=== PATIENT | male | born 1995 | race Caucasian/White ===

== ENCOUNTER 2018-06-07 10:39 | Emergency (ER) | payer SELFPAY ==
--- NOTE | 2018-06-07 11:27 | EKG ---
Test Date: 2018-06-07 Test Time: 11:07:25 Glass Mould Cleaner: JOE MEASUREMENT RESULTS: Intervals: Rate: 64 SC: 134 QRSD: 102 QT: 402 QTc: 414 Velva: P: 42 SC: 134 QRS: 46 T: 53 INTERPRETIVE STATEMENTS: Normal sinus rhythm Normal ECG No previous ECG available for comparison Electronically Signed On 06-07-18 11:27:33 CDT by Andrew Contreras
[2018-06-07 12:16] LABS: Absolute Lymphocytes (CBC) 2.9 K/uL (0.7-4.9); Absolute Monocytes 0.6 K/uL (0.1-1.3); Absolute Neutrophil 4.9 K/uL (1.8-8.0); Basophils % 0.8 % (0-1.3); Eosinophils % 6.3 % (0-4.4); Hematocrit 47.1 % (39.6-49.0); Lymphocytes % 31.9 % (15.3-44.8); MCH 30.4 pg (27.0-35.0); MCV 87.3 fL (80-100); MPV 8.4 fL (7.6-11.3); Monocytes % 6.4 % (3.3-12.3)
[2018-06-07 12:27] LABS: Protime INR 1.02
--- NOTE | 2018-06-07 12:37 | RAD REPORT ---
EXAM DESCRIPTION: RAD - Chest Single View - 06/07/2018 12:30 pm CLINICAL HISTORY: SOB Chest pain. COMPARISON: No comparisons FINDINGS: Portable technique limits examination quality. The lungs are grossly clear. The heart is normal in size. No displaced fractures. IMPRESSION: No acute intrathoracic process suspected.
[2018-06-07 12:38] LABS: Urine Blood NEGATIVE (NEG); Urine Glucose NEGATIVE (NEG); Urine Protein NEGATIVE (NEG); Urine Specific Gravity 1.015 (1.005-1.030)
[2018-06-07 12:43] LABS: ALT/SGPT 34 U/L (12-78); AST/SGOT 19 U/L (15-37); Albumin 4.2 g/dL (3.4-5.0); Alkaline Phosphatase 40 U/L (45-117); BUN Blood Urea Nitrogen 11 mg/dL (7-18); Bicarbonate 24 mmol/L (21-32); Bilirubin Direct 0.2 mg/dL (0-0.2); CKMB Creatine Kinase MB < 1.0 ng/mL (0.3-3.6); Creatine Phosphokinase 141 U/L (39-308); Glucose Level 98 mg/dL (74-106); NT PRO-BNP 20 pg/mL (<125); Potassium 3.7 mmol/L (3.5-5.1); Protein, Total 7.9 g/dL (6.4-8.2); Sodium Level 136 mmol/L (136-145)
--- NOTE | 2018-06-07 15:19 | ER ---
Nurse's Notes [facility] Name: Ar Henley Age: 22 yrs Sex: Male : 1995 Arrival Date: 06/07/2018 Time: 10:39 Bed 17 Private MD: Diagnosis: Weakness;Shortness of breath Presentation: 06/07 10:40 Presenting complaint: EMS states: pt was climbing a scaffold at work when he began to dm5 feel weak, have numbness of his lips, and suffer from chest pain/LUQ pain. pt states he has never had this happen before. Transition of care: patient was not received from another setting of care. Onset of symptoms was June 07, 2018. Risk Assessment: Do you want to hurt yourself or someone else? Patient reports no desire to harm self or others. Initial Sepsis Screen: Does the patient meet any 2 criteria? No. Patient's initial sepsis screen is negative. Does the patient have a suspected source of infection? No. Patient's initial sepsis screen is negative. Care prior to arrival: None. 10:40 Method Of Arrival: EMS: [place] [id number] 10:40 Acuity: RAFAEL 3 dm5 Triage Assessment: 10:42 General: Appears in no apparent distress. uncomfortable, Behavior is cooperative, dm5 anxious. Pain: Complains of pain in chest. Respiratory: Reports shortness of breath on exertion Onset: The symptoms/episode began/occurred suddenly, the patient has moderate shortness of breath. Historical: - Allergies: 10:42 Sulfa (Sulfonamide Antibiotics); dm5 - Home Meds: 10:42 None [Active]; dm5 - PMHx: 10:42 None; dm5 - PSHx: 10:42 None; dm5 - Immunization history:: Adult Immunizations up to date. - Social history:: Smoking status: Patient/guardian denies using tobacco. - Ebola Screening: : Patient negative for fever greater than or equal to 101.5 degrees Fahrenheit, and additional compatible Ebola Virus Disease symptoms Patient denies exposure to infectious person Patient denies travel to an Ebola-affected area in the 21 days before illness onset No symptoms or risks identified at this time. Screenin:21 Abuse screen: Denies threats or abuse. Denies injuries from another. Nutritional hb screening: No deficits noted. Tuberculosis screening: No symptoms or risk factors identified. Fall Risk None identified. Assessment: 10:45 General: Appears in no apparent distress. Behavior is calm, cooperative. Pain: Pain hb currently is 2 out of 10 on a pain scale. Neuro: Level of Consciousness is awake, alert, obeys commands, Oriented to person, place, time, situation. Cardiovascular: Reports chest pain, shortness of breath, Heart tones S1 S2 present Capillary refill < 3 seconds Patient's skin is warm and dry. Rhythm is regular. Respiratory: Reports shortness of breath Airway is patent Trachea midline Respiratory effort is even, unlabored, Respiratory pattern is regular, symmetrical, Breath sounds are clear bilaterally. GI: No signs and/or symptoms were reported involving the gastrointestinal system. : No signs and/or symptoms were reported regarding the genitourinary system. EENT: No signs and/or symptoms were reported regarding the EENT system. Derm: No signs and/or symptoms reported regarding the dermatologic system. Skin is intact, is healthy with good turgor. Musculoskeletal: No signs and/or symptoms reported regarding the musculoskeletal system. 11:30 Reassessment: Patient appears in no apparent distress at this time. Patient and/or hb family updated on plan of care and expected duration. Pain level reassessed. Patient is alert, oriented x 3, equal unlabored respirations, skin warm/dry/pink. 12:30 Reassessment: Patient appears in no apparent distress at this time. No changes from hb previously documented assessment. Patient and/or family updated on plan of care and expected duration. Pain level reassessed. Patient is alert, oriented x 3, equal unlabored respirations, skin warm/dry/pink. 13:30 Reassessment: Patient appears in no apparent distress at this time. No changes from hb previously documented assessment. Patient and/or family updated on plan of care and expected duration. Pain level reassessed. Patient is alert, oriented x 3, equal unlabored respirations, skin warm/dry/pink. 14:30 Reassessment: Patient appears in no apparent distress at this time. No changes from hb previously documented assessment. Patient and/or family updated on plan of care and expected duration. Pain level reassessed. Patient is alert, oriented x 3, equal unlabored respirations, skin warm/dry/pink. Vital Signs: 10:42 BP 126 / 81; Pulse 70; Resp 20; Temp 98.3; Pulse Ox 99% on R/A; Weight 95.25 kg; Height dm5 5 ft. 10 in. (177.80 cm); Pain 2/10; 10:42 Body Mass Index 30.13 (95.25 kg, 177.80 cm) dm5 ED Course: 10:39 Patient arrived in ED. dm5 10:41 Triage completed. dm5 10:42 Arm band placed on right wrist. dm5 10:43 Inserted saline lock: 18 gauge in right antecubital area, using aseptic technique. dh3 Blood collected. by ABDIFATAH Neely. 10:45 No provider procedures requiring assistance completed. sg 11:00 Patient has correct armband on for positive identification. Bed in low position. Call sg light in reach. Side rails up X2. compliance monitor on. Pulse ox on. NIBP on. Warm blanket given. Head of bed elevated. 11:10 Gerhard Segundo MD is Attending Physician. kdr 11:16 EKG done, by lead quality technician. reviewed by Gerhard Segundo MD. at1 11:40 Jermain Foote, ABDIFATAH is Primary Nurse. sg 12:00 Urine collected: clean catch specimen, jovani colored. dh3 12:09 Initial lab(s) drawn, by ED staff, sent to lab. dh3 12:29 X-ray completed. Portable x-ray completed in exam room. Patient tolerated procedure jb2 well. 12:31 XRAY Chest (1 view) In Process Unspecified. EDMS 12:36 Awaiting for x-ray. sg 14:35 Repeat lab(s) drawn. by ED staff, sent to lab. sg 15:45 IV discontinued, intact, bleeding controlled, No redness/swelling at site. Pressure sg dressing applied. Administered Medications: No medications were administered Point of Care Testing: Blood Glucose: 10:42 Blood Glucose: 98 mg/dL; dm5 Ranges: Outcome: 15:18 Discharge ordered by . kdr 15:30 Discharged to home ambulatory, with family. sg 15:30 Condition: good 15:30 Discharge instructions given to patient, Instructed on discharge instructions, follow up and referral plans. medication usage, safety practices, Demonstrated understanding of instructions, follow-up care. 15:34 Patient left the ED. sg Signatures: Dispatcher [employer] EDN[facility] Ethel Dunn, ABDIFATAH RN dm5 Foote, Jermain, Gerhard Colon RN, MD MD kdr Buechter, Jesse jb2 Nicci Sanchez, zig zag spring machine operator EKG Tat1 Florinda Sparks RN RN hb Herrera, Deanna 3 Corrections: (The following items were deleted from the chart) 12:15 10:43 Inserted saline lock: 18 gauge in right antecubital area, using aseptic dh3 technique. Blood collected. [facility]
--- NOTE | 2018-06-07 15:19 | EDPHYS ---
Physician Documentation [facility] Name: Ar Henley Age: 22 yrs Sex: Male : 1995 Arrival Date: 06/07/2018 Time: 10:39 Bed 17 Private MD: ED Physician Gerhard Segundo HPI: 06/07 18:42 This 22 yrs old Male presents to ER via EMS with complaints of Shortness Of kdr Breath - numbness of lips, LUQ/lower left chest pain. 18:42 The patient has shortness of breath with light activity, The patient had just climbed a kdr scaffolding about 10' when he had acute onset of SOB. Then his hands and moth began to get tingling and numb. He had not had this before and there are no other associated s/s. Onset: The symptoms/episode began/occurred suddenly, just prior to arrival. Duration: The symptoms are continuous, but are markedly better than the original presentation. The patient's shortness of breath has no apparent modifying factors. Associated signs and symptoms: The patient has no apparent associated signs or symptoms. Associated signs and symptoms: Pertinent positives: This patient does not have any pertinent positive signs or symptoms associated with shortness of breath. Severity of symptoms: At their worst the symptoms were mild moderate in the emergency department the symptoms are unchanged. The patient has not experienced similar symptoms in the past. The patient has not recently seen a physician. Historical: - Allergies: 10:42 Sulfa (Sulfonamide Antibiotics); dm5 - Home Meds: 10:42 None [Active]; dm5 - PMHx: 10:42 None; dm5 - PSHx: 10:42 None; dm5 - Immunization history:: Adult Immunizations up to date. - Social history:: Smoking status: Patient/guardian denies using tobacco. - Ebola Screening: : Patient negative for fever greater than or equal to 101.5 degrees Fahrenheit, and additional compatible Ebola Virus Disease symptoms Patient denies exposure to infectious person Patient denies travel to an Ebola-affected area in the 21 days before illness onset No symptoms or risks identified at this time. ROS: 18:42 Constitutional: Negative for fever, chills, and weight loss, Eyes: Negative for injury, kdr pain, redness, and discharge, Neck: Negative for injury, pain, and swelling, Cardiovascular: Negative for chest pain, palpitations, and edema, Respiratory: Negative for shortness of breath, cough, wheezing, and pleuritic chest pain, Abdomen/GI: Negative for abdominal pain, nausea, vomiting, diarrhea, and constipation, Back: Negative for injury and pain, MS/Extremity: Negative for injury and deformity, Skin: Negative for injury, rash, and discoloration, Neuro: Negative for headache, weakness, numbness, tingling, and seizure activity. Psych: Negative for depression, anxiety, suicide ideation, homicidal ideation, and hallucinations, Allergy/Immunology: Negative for hives, rash, and allergies, Endocrine: Negative for neck swelling, polydipsia, polyuria, polyphagia, and marked weight changes, Hematologic/Lymphatic: Negative for swollen nodes, abnormal bleeding, and unusual bruising. Exam: 18:46 Constitutional: This is a well developed, well nourished patient who is awake, alert, kdr and in no acute distress. Head/Face: Normocephalic, atraumatic. Eyes: Pupils equal round and reactive to light, extra-ocular motions intact. Lids and lashes normal. Conjunctiva and sclera are non-icteric and not injected. Cornea within normal limits. Periorbital areas with no swelling, redness, or edema. Neck: Trachea midline, no thyromegaly or masses palpated, and no cervical lymphadenopathy. Supple, full range of motion without nuchal rigidity, or vertebral point tenderness. No Meningismus. Chest/axilla: Normal chest wall appearance and motion. Nontender with no deformity. No lesions are appreciated. Cardiovascular: Regular rate and rhythm with a normal S1 and S2. No gallops, murmurs, or rubs. Normal PMI, no JVD. No pulse deficits. Respiratory: Lungs have equal breath sounds bilaterally, clear to auscultation and percussion. No rales, rhonchi or wheezes noted. No increased work of breathing, no retractions or nasal flaring. Abdomen/GI: Soft, non-tender, with normal bowel sounds. No distension or tympany. No guarding or rebound. No evidence of tenderness throughout. Back: No spinal tenderness. No costovertebral tenderness. Full range of motion. Skin: Warm, dry with normal turgor. Normal color with no rashes, no lesions, and no evidence of cellulitis. MS/ Extremity: Pulses equal, no cyanosis. Neurovascular intact. Full, normal range of motion. Neuro: Awake and alert, GCS 15, oriented to person, place, time, and situation. Cranial nerves II-XII grossly intact. Motor strength 5/5 in all extremities. Sensory grossly intact. Cerebellar exam normal. Normal gait. Psych: Awake, alert, with orientation to person, place and time. Behavior, mood, and affect are within normal limits. Vital Signs: 10:42 BP 126 / 81; Pulse 70; Resp 20; Temp 98.3; Pulse Ox 99% on R/A; Weight 95.25 kg; Height dm5 5 ft. 10 in. (177.80 cm); Pain 2/10; 10:42 Body Mass Index 30.13 (95.25 kg, 177.80 cm) dm5 MDM: 15:18 Patient medically screened. kdr 18:46 Data reviewed: vital signs, nurses notes, lab test result(s), radiologic studies. kdr Counseling: I had a detailed discussion with the patient and/or guardian regarding: the historical points, exam findings, and any diagnostic results supporting the discharge/admit diagnosis, lab results, radiology results, the need for outpatient follow up. 06/07 10:45 Order name: Glucose, Ancillary Testing; Complete Time: 14:48 EDMS 06/07 12:04 Order name: Basic Metabolic Panel; Complete Time: 14:48 hb 06/07 12:04 Order name: CBC with Diff; Complete Time: 14:48 hb 06/07 12:04 Order name: Ckmb; Complete Time: 14:48 hb 06/07 12:04 Order name: CPK; Complete Time: 14:48 hb 06/07 12:04 Order name: LFT's; Complete Time: 14:48 hb 06/07 12:04 Order name: Magnesium; Complete Time: 14:48 hb 06/07 12:04 Order name: NT PRO-BNP; Complete Time: 14:48 hb 06/07 12:04 Order name: PT-INR; Complete Time: 14:48 hb 06/07 12:04 Order name: Ptt, Activated; Complete Time: 14:48 hb 06/07 12:04 Order name: Troponin (emerg Dept Use Only); Complete Time: 14:48 hb 06/07 11:03 Order name: EKG; Complete Time: 11:04 dm5 06/07 11:03 Order name: EKG - Nurse/Tech; Complete Time: 11:40 dm5 06/07 12:04 Order name: Cardiac monitoring; Complete Time: 12:24 hb 06/07 12:04 Order name: IV Saline Lock; Complete Time: 12:24 hb 06/07 12:04 Order name: Labs collected and sent; Complete Time: 12:24 hb 06/07 12:05 Order name: XRAY Chest (1 view); Complete Time: 14:48 cc3 06/07 12:20 Order name: Urine Dipstick--Ancillary (enter results); Complete Time: 14:48 dm5 06/07 14:29 Order name: Troponin (emerg Dept Use Only); Complete Time: 15:17 bd 06/07 12:04 Order name: O2 Per Protocol; Complete Time: 12:24 hb 06/07 12:04 Order name: O2 Sat Monitoring; Complete Time: 12:24 hb 06/07 12:04 Order name: Urine Dipstick-Ancillary (obtain specimen); Complete Time: 12:05 hb 06/07 12:05 Order name: Cardiac monitoring; Complete Time: 12:17 cc3 06/07 12:05 Order name: IV Saline Lock; Complete Time: 12:17 cc3 06/07 12:05 Order name: Labs collected and sent; Complete Time: 12:17 cc3 06/07 12:05 Order name: O2 Per Protocol; Complete Time: 12:17 cc3 06/07 12:05 Order name: O2 Sat Monitoring; Complete Time: 12:17 cc3 06/07 12:05 Order name: Urine Dipstick-Ancillary (obtain specimen); Complete Time: 12:17 cc3 Administered Medications: No medications were administered Point of Care Testing: Blood Glucose: 10:42 Blood Glucose: 98 mg/dL; dm5 Ranges: Critical Glucose Levels:Adult <50 mg/dl or >400 mg/dl <40 mg/dl or >180 mg/dl Disposition: 06/07/18 15:18 Discharged to Home. Impression: Weakness, Shortness of breath. - Condition is Stable. - Discharge Instructions: Shortness of Breath, Pediatric, Shortness of Breath, [id number], Fatigue, Weakness, [id number]. - Work release form, Medication Reconciliation Form, Thank You Letter form. - Follow up: Private Physician; When: 2 - 3 days; Reason: If symptoms return, Further diagnostic work-up, Recheck today's complaints, Continuance of care, Re-evaluation by your physician. - Problem is new. - Symptoms are resolved. Signatures: Dispatcher [employer] [facility] AngieEthel joiner RN RN dm5 Jermain Foote RN RN sg Gerhard Segundo MD MD [facility] Florinda Sparks RN RN Rossi Berrios 3 Corrections: (The following items were deleted from the chart) 12:09 12:05 Chest Single View+RAD.RAD.BRZ ordered. [facility] EDNJ 12:16 12:05 BASIC METABOLIC PANEL+C.LAB.BRZ ordered. [facility] 12:16 12:05 CKMB+C.LAB.BRZ ordered. [facility] 12:16 12:05 CREATINE PHOSPHOKINASE+C.LAB.BRZ ordered. [facility] 12:16 12:05 HEPATIC FUNCTION+C.LAB.BRZ ordered. [facility] 12:16 12:06 MAGNESIUM+C.LAB.BRZ ordered. [facility] 12:16 12:06 PROBNP+C.LAB.BRZ ordered. [facility] 12:17 12:06 TROPONIN (EMERG DEPT USE ONLY)+C.LAB.BRZ ordered. [facility] 12:19 12:05 CBC+H.LAB.BRZ ordered. [facility] EDNJ 12:19 12:06 PROTIME (+INR)+COAG.LAB.BRZ ordered. [facility] EDNJ 12:19 12:06 PTT, ACTIVATED+COAG.LAB.BRZ ordered. [facility] 15:34 15:18 06/07/2018 15:18 Discharged to Home. Impression: Weakness; Shortness of breath. sg Condition is Stable. Forms are Medication Reconciliation Form, Thank You Letter, Antibiotic Education, Prescription Opioid Use. Follow up: Private Physician; When: 2 - 3 days; Reason: If symptoms return, Further diagnostic work-up, Recheck today's complaints, Continuance of care, Re-evaluation by your physician. Problem is new. Symptoms are resolved. kdr
== END 2018-06-07 15:34 | disposition home or self-care (01) ==
LOC: ER 10:39
DX: R53.1 Weakness (principal); Z88.2 Allergy status to sulfonamides
CPT/HCPCS: 36415; 71045; 80048; 80076; 81003; 82550; 82553; 82962; 83735; 83880; 84484; 85025; 85610; 85730; 93005; 99285

== ENCOUNTER 2021-08-20 14:09 | Emergency (ER) | payer BC, SELFPAY ==
[2021-08-20] MEDS ORDERED: MORPHINE 4 MG/ML SYR ONE (16:18)
[2021-08-20] MEDS ORDERED: ONDANSETRON 4 MG/2 ML VIAL ONE (16:19)
[2021-08-20] MEDS ORDERED: KETOROLAC 30 MG/ML INJ ONE (16:19)
[2021-08-20] MEDS ORDERED: NA CHLORIDE 0.9% 1,000 ML ONE (16:19)
[2021-08-20 16:33] LABS: Basophils % 1.3 % (0-1.3); Hematocrit 43.1 % (39.6-49.0); Lymphocytes % 28.9 % (15.3-44.8); MPV 7.6 fL (7.6-11.3); RBC Red Blood Cell Count 4.99 M/uL (4.33-5.43)
--- NOTE | 2021-08-20 16:52 | RAD REPORT ---
EXAM DESCRIPTION: RAD - Femur Left - 08/20/2021 4:38 pm CLINICAL HISTORY: PAIN COMPARISON: No comparisons FINDINGS: No fracture or dislocation is seen.
[2021-08-20 16:53] LABS: Albumin 3.9 g/dL (3.4-5.0); Bilirubin Total 0.6 mg/dL (0.2-1.0); Potassium 4.4 mmol/L (3.5-5.1); Protein, Total 7.7 g/dL (6.4-8.2)
--- NOTE | 2021-08-20 19:30 | RAD REPORT ---
EXAM DESCRIPTION: MRI - Femur Left Wo Cont - 08/20/2021 7:08 pm CLINICAL HISTORY: torn muscle Left thigh pain and swelling COMPARISON: No comparisons FINDINGS: Significant elevated T2 and IR signal is seen within the left rectus femoris muscle compat ible with a significant muscle strain. The affected length of the involved portion of the muscle is 2 1 cm in craniocaudad dimension and 3 cm in anterior-posterior dimension. Full-thickness muscle tear i s not seen. No soft tissue mass. No femoral abnormality. IMPRESSION: Significant rectus femoris strain.
--- NOTE | 2021-08-20 19:47 | EDPHYS ---
Physician Documentation [facility] Name: Ar Henley Age: 26 yrs Sex: Male : 1995 Arrival Date: 08/20/2021 Time: 14:[address] Private MD: Jerson Whitlock HPI: 08/20 18:30 This 26 yrs old Male presents to ER via Ambulatory with complaints of Thigh stew Pain. 18:30 The patient presents with decreased range of motion, pain, that is acute. The stew complaints affect the medial aspect of left thigh and left quadriceps. Context: The problem was sustained on a street or driveway. Onset: The symptoms/episode began/occurred just prior to arrival. Modifying factors: The symptoms are alleviated by remaining still, the symptoms are aggravated by movement, weight bearing, bending knee. Associated signs and symptoms: The patient has no apparent associated signs or symptoms. Treatment prior to arrival includes: no previous treatment. Severity of symptoms: At their worst the symptoms were moderate, in the emergency department the symptoms are unchanged. The patient has not experienced similar symptoms in the past. Historical: - Allergies: 15:28 Sulfa (Sulfonamide Antibiotics); ap3 - Home Meds: 15:28 None [Active]; ap3 - PMHx: 15:28 None; ap3 - PSHx: 15:28 None; ap3 - Immunization history:: Adult Immunizations up to date, Client reports having NOT received the Covid vaccine. - Social history:: Smoking status: Patient reports the use of cigarette tobacco products, denies chronic smoking, but will smoke occasionally, Patient uses alcohol, only on a social basis. - Family history:: not pertinent. ROS: 18:30 Constitutional: Negative for fever, chills, and weight loss, Eyes: Negative for injury, stew pain, redness, and discharge, ENT: Negative for injury, pain, and discharge, Neck: Negative for injury, pain, and swelling, Cardiovascular: Negative for chest pain, palpitations, and edema, Respiratory: Negative for shortness of breath, cough, wheezing, and pleuritic chest pain, Abdomen/GI: Negative for abdominal pain, nausea, vomiting, diarrhea, and constipation, Back: Negative for injury and pain, : Negative for injury, bleeding, discharge, and swelling, Skin: Negative for injury, rash, and discoloration, Neuro: Negative for headache, weakness, numbness, tingling, and seizure, Psych: Negative for depression, anxiety, suicide ideation, homicidal ideation, and hallucinations, Allergy/Immunology: Negative for hives, rash, and allergies, Endocrine: Negative for neck swelling, polydipsia, polyuria, polyphagia, and marked weight changes, Hematologic/Lymphatic: Negative for swollen nodes, abnormal bleeding, and unusual bruising. 18:30 MS/extremity: Positive for decreased range of motion, pain, tenderness, of the left inner thigh, medial aspect of left thigh and left quadriceps. Exam: 18:30 Constitutional: This is a well developed, well nourished patient who is awake, alert, stew and in no acute distress. Head/Face: Normocephalic, atraumatic. Eyes: Pupils equal round and reactive to light, extra-ocular motions intact. Lids and lashes normal. Conjunctiva and sclera are non-icteric and not injected. Cornea within normal limits. Periorbital areas with no swelling, redness, or edema. ENT: Nares patent. No nasal discharge, no septal abnormalities noted. Tympanic membranes are normal and external auditory canals are clear. Oropharynx with no redness, swelling, or masses, exudates, or evidence of obstruction, uvula midline. Mucous membranes moist. Neck: Trachea midline, no thyromegaly or masses palpated, and no cervical lymphadenopathy. Supple, full range of motion without nuchal rigidity, or vertebral point tenderness. No Meningismus. Chest/axilla: Normal chest wall appearance and motion. Nontender with no deformity. No lesions are appreciated. Cardiovascular: Regular rate and rhythm with a normal S1 and S2. No gallops, murmurs, or rubs. Normal PMI, no JVD. No pulse deficits. Respiratory: Lungs have equal breath sounds bilaterally, clear to auscultation and percussion. No rales, rhonchi or wheezes noted. No increased work of breathing, no retractions or nasal flaring. Abdomen/GI: Soft, non-tender, with normal bowel sounds. No distension or tympany. No guarding or rebound. No evidence of tenderness throughout. Back: No spinal tenderness. No costovertebral tenderness. Full range of motion. Male : Normal genitalia with no discharge or lesions. Skin: Warm, dry with normal turgor. Normal color with no rashes, no lesions, and no evidence of cellulitis. Neuro: Awake and alert, GCS 15, oriented to person, place, time, and situation. Cranial nerves II-XII grossly intact. Motor strength 5/5 in all extremities. Sensory grossly intact. Cerebellar exam normal. Normal gait. Psych: Awake, alert, with orientation to person, place and time. Behavior, mood, and affect are within normal limits. 18:30 Musculoskeletal/extremity: Extremities: noted in the left quadriceps: deformity, pain, ROM: limited active range of motion, limited passive range of motion, in the left inner thigh, medial aspect of left thigh and left quadriceps, limited active range of motion due to pain, limited passive range of motion due to pain, Circulation is intact in all extremities. Sensation intact. Compartment Syndrome exam of affected extremity: is normal. Joints: All joints appear normal with full range of motion. DVT Exam: no swelling, negative Homans' sign noted on exam, no appreciated bluish discoloration, no erythema, no increased warmth, pain, tenderness. Vital Signs: 15:30 BP 126 / 67; Pulse 78; Resp 17; Temp 97.8(TE); Pulse Ox 100% ; Weight 102.06 kg; Height ap3 5 ft. 10 in. (177.80 cm); Pain 8/10; 16:26 BP 127 / 75; Pulse 72; Pulse Ox 100% on R/A; ap3 20:00 BP 130 / 89; Pulse 71; Resp 16; Pulse Ox 98% on R/A; Pain 4/10; fu 15:30 Body Mass Index 32.28 (102.06 kg, 177.80 cm) ap3 MDM: 15:24 Patient medically screened. stew 18:33 Differential diagnosis: closed fracture, contusion, tendonitis. Data reviewed: vital stew signs, nurses notes, lab test result(s), radiologic studies, MRI, plain films, ultrasound. Data interpreted: court monitor: rate is 72 beats/min, rhythm is regular, Pulse oximetry: on room air is 100 %. Test interpretation: by ED physician or midlevel provider: plain radiologic studies. Counseling: I had a detailed discussion with the patient and/or guardian regarding: the historical points, exam findings, and any diagnostic results supporting the discharge/admit diagnosis, lab results, radiology results, the need for outpatient follow up, for definitive care, a family practitioner, a orthopedic surgeon. 08/20 16:13 Order name: CBC with Diff; Complete Time: 18:27 [facility] 08/20 16:13 Order name: Comprehensive Metabolic Panel; Complete Time: 18:27 [facility] 08/20 16:13 Order name: Femur Left XRAY; Complete Time: 18:27 [facility] 08/20 18:29 Order name: US Extremity Venous Unilateral Ltd [facility] 08/20 19:07 Order name: Femur Left Wo Cont; Complete Time: 19:45 EDMS Administered Medications: 16:26 Drug: NS 0.9% 1000 ml Route: IV; Rate: 1 bolus; Site: right antecubital; ap3 17:52 Follow up: IV Status: Completed infusion ap3 16:26 Drug: Ketorolac 30 mg Route: IVP; Site: right antecubital; ap3 17:52 Follow up: Response: No adverse reaction; Pain is decreased ap3 16:26 Drug: Zofran (Ondansetron) 4 mg Route: IVP; Site: right antecubital; ap3 17:52 Follow up: Response: No adverse reaction; Nausea is decreased ap3 16:26 Drug: morphine 4 mg Route: IVP; Site: right antecubital; ap3 17:52 Follow up: Response: No adverse reaction; Pain is decreased ap3 Disposition Summary: 08/20/21 19:46 Discharge Ordered Location: Home stew Problem: new stew Symptoms: have improved stew Condition: Stable stew Diagnosis - Unspecified injury of unspecified quadriceps muscle, fascia and tendon, initial stew encounter - rectus femoris strain, significant Followup: stew - With: Private Physician - When: 2 - 3 days - Reason: Recheck today's complaints, Continuance of care, Re-evaluation by your physician Followup: stew - With: - When: 2 - 3 days - Reason: Recheck today's complaints, Continuance of care, Re-evaluation by your physician Discharge Instructions: - Discharge Summary Sheet stew - Musculoskeletal Pain stew - Muscle Pain, Adult stew Forms: - Medication Reconciliation Form stew - Thank You Letter stew - Antibiotic Education stew - Prescription Opioid Use stew - Work release form fu Prescriptions: - Naprosyn 500 mg Oral Tablet - take 1 tablet by ORAL route 2 times per day take with food; 30 tablet; Refills: stew 0, Product Selection Permitted - Tylenol-Codeine #3 300 mg-30 mg Oral - take 2 tablet by ORAL route every 4-6 hours; 24 tablet; Refills: 0, Product stew Selection Permitted Signatures: Dispatcher [employer] Jerson Zamarripa MD MD cha Prokisch, Amanda RN RN ap3 Corrections: (The following items were deleted from the chart) 19:07 16:15 Lower Extremity Wo ordered. ED EDMS
--- NOTE | 2021-08-20 19:47 | ER ---
Nurse's Notes [facility] Name: Ar Henley Age: 26 yrs Sex: Male : 1995 Arrival Date: 08/20/2021 Time: 14:[address] Private MD: Diagnosis: Unspecified injury of unspecified quadriceps muscle, fascia and tendon, initial encounter-rectus femoris strain, significant Presentation: 08/20 15:27 Chief complaint: Patient states: he was working on his 's car, when he got up and ap3 felt pain in his left upper leg. patient states the pain doesn't radiate. Coronavirus screen: At this time, the client does not indicate any symptoms associated with coronavirus-19. Ebola Screen: No symptoms or risks identified at this time. Initial Sepsis Screen: Does the patient meet any 2 criteria? No. Patient's initial sepsis screen is negative. Does the patient have a suspected source of infection? No. Patient's initial sepsis screen is negative. Risk Assessment: Do you want to hurt yourself or someone else? Patient reports no desire to harm self or others. Onset of symptoms was August 20, 2021. 15:27 Method Of Arrival: Ambulatory ap3 15:27 Acuity: RAFAEL 4 ap3 Triage Assessment: 15:29 General: Appears in no apparent distress. comfortable, Behavior is calm, cooperative, ap3 appropriate for age. Pain: Complains of pain in left leg. 15:29 Neuro: Level of Consciousness is awake, alert, obeys commands, Oriented to person, ap3 place, time, situation, Appropriate for age Overhead Crane Operator are equal bilaterally Moves all extremities. Gait is steady, Speech is normal. Cardiovascular: Capillary refill < 3 seconds Patient's skin is warm and dry. Respiratory: Airway is patent Respiratory effort is even, unlabored, Respiratory pattern is regular, symmetrical. Musculoskeletal: Reports pain in left leg. Historical: - Allergies: 15:28 Sulfa (Sulfonamide Antibiotics); ap3 - Home Meds: 15:28 None [Active]; ap3 - PMHx: 15:28 None; ap3 - PSHx: 15:28 None; ap3 - Immunization history:: Adult Immunizations up to date, Client reports having NOT received the Covid vaccine. - Social history:: Smoking status: Patient reports the use of cigarette tobacco products, denies chronic smoking, but will smoke occasionally, Patient uses alcohol, only on a social basis. - Family history:: not pertinent. Screenin:30 Abuse screen: Denies threats or abuse. Nutritional screening: No deficits noted. ap3 Tuberculosis screening: No symptoms or risk factors identified. Fall Risk None identified. No fall in past 12 months (0 pts). No secondary diagnosis (0 pts). No IV (0 pts). Ambulatory Aid- None/Bed Rest/Nurse Assist (0 pts). Gait- Normal/Bed Rest/Wheelchair (0 pts). Assessment: 15:30 Reassessment: see triage note please. ap3 16:43 Reassessment: Patient and/or family updated on plan of care and expected duration. Pain ap3 level reassessed. Patient is alert, oriented x 3, equal unlabored respirations, skin warm/dry/pink. 17:55 Reassessment: Patient and/or family updated on plan of care and expected duration. Pain ap3 level reassessed. Patient is alert, oriented x 3, equal unlabored respirations, skin warm/dry/pink. Patient states feeling better. Patient states symptoms have improved. 20:00 Reassessment: Patient and/or family updated on plan of care and expected duration. Pain fu level reassessed. Patient is alert, oriented x 3, equal unlabored respirations, skin warm/dry/pink. Patient states symptoms have improved. Vital Signs: 15:30 BP 126 / 67; Pulse 78; Resp 17; Temp 97.8(TE); Pulse Ox 100% ; Weight 102.06 kg; Height ap3 5 ft. 10 in. (177.80 cm); Pain 8/10; 16:26 BP 127 / 75; Pulse 72; Pulse Ox 100% on R/A; ap3 20:00 BP 130 / 89; Pulse 71; Resp 16; Pulse Ox 98% on R/A; Pain 4/10; fu 15:30 Body Mass Index 32.28 (102.06 kg, 177.80 cm) ap3 ED Course: 14:11 Patient arrived in ED. as 15:24 Jerson Tang MD is Attending Physician. [facility] 15:27 Nicci Barkley, ABDIFATAH is Primary Nurse. ap3 15:28 Triage completed. ap3 15:30 Arm band placed on left wrist. ap3 15:30 Patient has correct armband on for positive identification. Bed in low position. Call ap3 light in reach. Pulse ox on. NIBP on. Door closed. Noise minimized. 16:10 Initial lab(s) drawn, by me, sent to lab. Inserted saline lock: 20 gauge in right kj1 antecubital area, using aseptic technique. Blood collected. 16:27 Patient moved to MRI via wheelchair. ap3 16:38 Femur Left XRAY In Process Unspecified. EDMS 16:40 Patient moved back from MRI. ap3 19:08 Femur Left Wo Cont In Process Unspecified. EDMS 19:15 Primary Nurse role handed off by Nicci Barkley RN mw2 19:45 Jermain Waters MD is Referral Physician. stew 19:53 Balwinder Benavidez, ABDIFATAH is Primary Nurse. fu 20:02 US Extremity Venous Unilateral Ltd In Process Unspecified. EDMS 20:14 No provider procedures requiring assistance completed. IV discontinued, bleeding fu controlled, Pressure dressing applied. Administered Medications: 16:26 Drug: NS 0.9% 1000 ml Route: IV; Rate: 1 bolus; Site: right antecubital; ap3 17:52 Follow up: IV Status: Completed infusion ap3 16:26 Drug: Ketorolac 30 mg Route: IVP; Site: right antecubital; ap3 17:52 Follow up: Response: No adverse reaction; Pain is decreased ap3 16:26 Drug: Zofran (Ondansetron) 4 mg Route: IVP; Site: right antecubital; ap3 17:52 Follow up: Response: No adverse reaction; Nausea is decreased ap3 16:26 Drug: morphine 4 mg Route: IVP; Site: right antecubital; ap3 17:52 Follow up: Response: No adverse reaction; Pain is decreased ap3 Outcome: 19:46 Discharge ordered by . stew 20:14 Discharged to home ambulatory, with crutches. fu 20:14 Condition: good 20:14 Discharge instructions given to patient, Instructed on discharge instructions, follow up and referral plans. crutch walking, Demonstrated understanding of instructions, follow-up care, Prescriptions given X 2. 20:15 Patient left the ED. fu Signatures: Dispatcher [employer] EDGA Jerson Tang MD MD cha Martinez, Amelia as Umadhay, Felix, RN RN Nicci Renteria, ABDIFATAH RN ap3 Mady Morgan mw2 Norma Bonner 1
--- NOTE | 2021-08-20 20:17 | RAD REPORT ---
EXAM DESCRIPTION: US - Extremity Venous Uni Ltd - 08/20/2021 8:02 pm CLINICAL HISTORY: PAIN Leg swelling and edema. COMPARISON: No comparisons FINDINGS: Left lower extremity venous system was interrogated with Doppler technique. Normal flow, c ompressibility and augmentation was noted. There is no DVT present. IMPRESSION: No evidence of left lower extremity deep venous thrombosis.
[2021-08-20 20:48] VITALS: TEMP 97.8
[2021-08-20 20:51] VITALS: BP 130/89; O2SAT 98
--- OUTSIDE RECORDS SUMMARY | 2021-08-31 08:15 | XMS REPORT | Continuity of Care Document ---
:1995 Author Organization [facility] t Address [address] [place] [address] Care Team Providers Name Role Phone Unavailable Unavailable Unavailable Problems This patient has no known problems. Allergies, Adverse Reactions, Alerts This patient has no known allergies or adverse reactions. Medications This patient has no known medications. Procedures This patient has no known procedures. Encounters Start End Encounter Admission Attending Care Care Encounter Source Date/Time Date/Time Type Type Clinicians Facility Department ID 2021-08-15 2021-08-15 Outpatient [facility] [id number] [facility] 2021-08-14 2021-08-14 Outpatient [facility] [id number] [facility] 2021-08-08 2021-08-08 Outpatient [facility] [id number] [facility] Results This patient has no known results.
== END 2021-08-20 20:15 | disposition home or self-care (01) ==
LOC: ER 14:09
DX: S76.812A Strain of other specified muscles, fascia and tendons at thigh level, left thigh, initial encounter (principal); Z72.0 Tobacco use; Z88.2 Allergy status to sulfonamides
CPT/HCPCS: 96361; 85025; 36415; 80053; 73552; 93971; 73718; 96375; 96374; 99284; J7030; J2405

== ENCOUNTER 2024-08-17 03:11 | Emergency (ER) | payer BC ==
--- OUTSIDE RECORDS SUMMARY | 2024-08-17 03:15 | XMS REPORT | Continuity of Care Document ---
Author Name Unknown Address [address] [facility] [address] [place] [address] [facility] Address [address] [facility] [address] [place] [address] Care Team Providers Care Sod Stripper Name Role Phone ManzanoMargret guoi Attending Clinician Unavailable Payers Payer Name Policy Type Policy Number Effective Date Expirati on Date Source [facility] 6 [id number] 1 [facility] Problems Condition Name Condition Details Condition Category Status Onset Date Resolution Date Last Treatment Date Treating Clinician Comments Source [id number] Hypersomni a Problem [facility] [id number] 00 Daytime somnolence Problem [facility] [id number] Other obesity due to excess calories Problem Active [facility] [id number] Body mass index [BMI] 32.0-32.9, adult Problem Active [facility] [id number] Morbid (severe) obesity due to excess calories Problem Active [facility] [id number] Mixed hyperlipid emia Problem Active [facility] [id number] Nicotine dependence , cigarettes , uncomplica erna Problem Active [facility] [id number] Decreased hearing of right ear Problem Active [facility] [id number] Subclinica l hypothyroi dism Problem [facility] Allergies, Adverse Reactions, Alerts Allergy Name Allergy Type Status Severity Reaction(s) Onset Date Inactive Date Treating Clinician Comments Source Substanc e with sulfonam ninoska structur e and antibact erial mechanis m of action (substan ce) Substanc e with sulfonam ninoska structur e and antibact erial mechanis m of action (substan ce) Active Unknown [facility] Social History Social Habit Start Date Stop Date Quantity Comments Source History of Tobacco Use [facility] Sex Assigned At [facility] Smoking Status Start Date Stop Date Source Former Smoker 2024-08-10 00:00:00 2024-08-10 00:00:00 [facility] Current Smoker 2023-11-06 00:00:00 [facility] Medications Ordered Medication Name Filled Medication Name Start Date Stop Date Current Medication? Ordering Clinician Indication Dosage Frequency Signature (SIG) Comments Components Source No Known Medications No Known Medications No [facility] Vital Signs Vital Name Observation Time Observation Value Comments S ource height 2024-08-10 10:00:00 70 [in_i] Commo n [facility] weight 2024-08-10 10:00:00 150 [lb_av] Comm on [facility] temperature 2024-08-10 10:00:00 98.2 [degF] Com mon [facility] bmi 2024-08-10 10:00:00 21.52 kg/m2 Comm on [facility] oximetry 2024-08-10 10:00:00 96 % Commo n [facility] respiratory rate 2024-08-10 10:00:00 16 /min [facility] blood pressure systolic 2024-08-10 10:00:00 122 mm[Hg] [facility] blood pressure diastolic 2024-08-10 10:00:00 68 mm[Hg] [facility] height 2023-09-21 08:40:00 70 [in_i] Commo n [facility] weight 2023-09-21 08:40:00 240 [lb_av] Comm on [facility] bmi 2023-09-21 08:40:00 34.43 kg/m2 Comm on [facility] height 2023-07-24 16:40:00 70 [in_i] Commo n [facility] weight 2023-07-24 16:40:00 240 [lb_av] Comm on [facility] temperature 2023-07-24 16:40:00 98.3 [degF] Com mon [facility] bmi 2023-07-24 16:40:00 34.43 kg/m2 Comm on [facility] height 2023-06-18 08:00:00 70 [in_i] Commo n [facility] weight 2023-06-18 08:00:00 247 [lb_av] Comm on [facility] temperature 2023-06-18 08:00:00 98.0 [degF] Com mon [facility] bmi 2023-06-18 08:00:00 35.44 kg/m2 Comm on [facility] oximetry 2023-06-18 08:00:00 97 % Commo n [facility] blood pressure systolic 2023-06-18 08:00:00 136 mm[Hg] [facility] blood pressure diastolic 2023-06-18 08:00:00 78 mm[Hg] [facility] height 2021-10-14 08:40:00 70 [in_i] Commo n [facility] weight 2021-10-14 08:40:00 226.0 [lb_av] Co mmon [facility] temperature 2021-10-14 08:40:00 98.9 [degF] Com mon [facility] bmi 2021-10-14 08:40:00 32.42 kg/m2 Comm on [facility] oximetry 2021-10-14 08:40:00 98 % Commo n [facility] respiratory rate 2021-10-14 08:40:00 16 /min [facility] blood pressure systolic 2021-10-14 08:40:00 126 mm[Hg] [facility] blood pressure diastolic 2021-10-14 08:40:00 72 mm[Hg] [facility] height 2021-08-08 15:20:00 70 [in_i] Commo n [facility] weight 2021-08-08 15:20:00 224.4 [lb_av] Co mmon [facility] temperature 2021-08-08 15:20:00 97.8 [degF] Com mon [facility] bmi 2021-08-08 15:20:00 32.19 kg/m2 Comm on [facility] oximetry 2021-08-08 15:20:00 97 % Commo n [facility] respiratory rate 2021-08-08 15:20:00 18 /min [facility] blood pressure systolic 2021-08-08 15:20:00 126 mm[Hg] [facility] blood pressure diastolic 2021-08-08 15:20:00 85 mm[Hg] [facility] Encounters Start Date/Time End Date/Time Encounter Type Admission Type Attending Clinicians Care Facility Care Department Encounter ID Source 2023-07-23 13:33:00 [facility] [id number] [facility] 2023-06-18 08:03:00 Outpatient K[facility] Manz[facility] [id number] [facility] 2022-01-28 11:52:01 Outpatient K[facility] Manz[facility] [id number] [facility] 2022-01-27 10:27:03 Outpatient Kary Manzano [facility] [id number] [facility] 2021-11-13 14:03:44 Outpatient Kary Manzano [facility] [id number] [facility] 2024-08-10 00:00:00 2024-08-10 00:00:00 OFFICE VISIT ESTAB PT LEVEL 4 [facility] [id number] [facility] 2023-09-21 00:00:00 2023-09-21 00:00:00 OFFICE VISIT ESTAB PT LEVEL 4 [facility] [id number] [facility] 2023-07-24 00:00:00 2023-07-24 00:00:00 OFFICE VISIT ESTAB PT LEVEL 4 [facility] [id number] [facility] 2023-06-23 00:00:00 2023-06-23 00:00:00 (TEL) [facility] [id number] [facility] 2023-06-18 00:00:00 2023-06-18 00:00:00 OFFICE VISIT ESTAB PT LEVEL 4 [facility] [id number] [facility] 2021-10-14 00:00:00 2021-10-14 00:00:00 OFFICE VISIT EST PT LEVEL 3 [facility] [id number] [facility] 2021-08-15 00:00:00 2021-08-15 00:00:00 OFFICE VISIT EST PT LEVEL 3 [facility] [id number] [facility] 2021-08-14 00:00:00 2021-08-14 00:00:00 (TEL) [facility] [id number] [facility] 2021-08-08 00:00:00 2021-08-08 00:00:00 PREV VISIT NEW AGE 18-39 [facility] [id number] [facility] Results Test Description Test Time Test Comments Results Result Co mments Source
[2024-08-17] MEDS ORDERED: LIDOCAINE HCL JELLY 2% 6 ML SYRINGE TOP ONE (03:36)
--- NOTE | 2024-08-17 03:40 | ER ---
Nurse's Notes [facility] Name: Ar Henley Age: 29 yrs Sex: Male : 1995 Arrival Date: 08/17/2024 Time: 03:11 Bed 6 Private MD: Diagnosis: Other hemorrhoids Presentation: 08/17 03:31 Chief complaint: Patient states: I started having rectal pain Jonnie night and it hasnt bm8 stopped. I think I have a hemmroid. Coronavirus screen: At this time, the client does not indicate any symptoms associated with coronavirus-19. Ebola Screen: Patient negative for fever greater than or equal to 101.5 degrees Fahrenheit, and additional compatible Ebola Virus Disease symptoms Patient denies exposure to infectious person. Patient denies travel to an Ebola-affected area in the 21 days before illness onset. No symptoms or risks identified at this time. Initial Sepsis Screen: Does the patient meet any 2 criteria? No. Patient's initial sepsis screen is negative. Does the patient have a suspected source of infection? No. Patient's initial sepsis screen is negative. Risk Assessment: Do you want to hurt yourself or someone else? Patient reports no desire to harm self or others. Onset of symptoms was August 15, 2024. 03:31 Method Of Arrival: Ambulatory bm8 03:31 Acuity: RAFAEL 4 bm8 Triage Assessment: 03:33 General: Appears in no apparent distress. comfortable, Behavior is calm, cooperative, bm8 appropriate for age. Pain: Complains of pain in rectum Pain does not radiate. Pain currently is 7 out of 10 on a pain scale. EENT: No deficits noted. No signs and/or symptoms were reported regarding the EENT system. Neuro: No deficits noted. Cardiovascular: No deficits noted. Respiratory: No deficits noted. GI: rectal pain from exposed hemmorid. : No deficits noted. No signs and/or symptoms were reported regarding the genitourinary system. Derm: No deficits noted. No signs and/or symptoms reported regarding the dermatologic system. Musculoskeletal: No deficits noted. No signs and/or symptoms reported regarding the musculoskeletal system. Historical: - Allergies: 03:33 Sulfa (Sulfonamide Antibiotics); bm8 - Home Meds: 03:33 None [Active]; bm8 - PMHx: 03:33 None; bm8 - PSHx: 03:33 None; bm8 - Immunization history:: Adult Immunizations up to date. - Infectious Disease History:: Denies. - Social history:: Smoking status: Patient denies any tobacco usage or history of. Screenin:34 [facility] ED Fall Risk Assessment (Adult) History of falling in the last 3 months, bm8 including since admission No falls in past 3 months (0 pts) Confusion or Disorientation No (0 pts) Intoxicated or Sedated No (0 pts) Impaired Gait No (0 pts) Mobility Assist Device Used No (0 pt) Altered Elimination No (0 pt) Score/Fall Risk Level 0 - 2 = Low Risk Oriented to surroundings, Maintained a safe environment, Educated pt \T\ family on fall prevention, incl call for assistance when getting out of bed, Assessed \T\ reinforced patient's understanding of fall precautions, Hourly rounding (assess needs \T\ fall precautionary measures) done, Used ambulatory aids as needed (educated on \T\ assisted with), Used gait belt as appropriate. Abuse screen: Denies threats or abuse. Nutritional screening: No deficits noted. Tuberculosis screening: No symptoms or risk factors identified. Assessment: 03:34 Reassessment: see triage assessment. bm8 04:09 Reassessment: Patient appears in no apparent distress at this time. Patient and/or bm8 family updated on plan of care and expected duration. Pain level reassessed. Patient is alert, oriented x 3, equal unlabored respirations, skin warm/dry/pink. Patient denies pain at this time. Patient states feeling better. Patient states symptoms have improved. Vital Signs: 03:31 BP 119 / 84; Pulse 60; Resp 16; Temp 98.1; Pulse Ox 98% ; Weight 111.13 kg; Height 5 bm8 ft. 10 in. ; Pain 7/10; 04:09 BP 125 / 83; Pulse 60; Resp 17; Temp 98.1; Pulse Ox 98% ; Pain 0/10; bm8 03:31 Body Mass Index 35.15 (111.13 kg, 177.8 cm) bm8 03:31 Pain Scale: Adult bm8 04:09 Pain Scale: Adult bm8 Shane Coma Score: 03:34 Eye Response: spontaneous(4). Motor Response: obeys commands(6). Verbal Response: bm8 oriented(5). Total: 15. 04:09 Eye Response: spontaneous(4). Motor Response: obeys commands(6). Verbal Response: bm8 oriented(5). Total: 15. ED Course: 03:16 Patient arrived in ED. gm2 03:17 Douglas Diaz MD is Attending Physician. ec2 03:31 Tino Quijano, RN is Primary Nurse. bm8 03:33 Triage completed. bm8 03:33 Arm band placed on right wrist. bm8 03:34 Patient has correct armband on for positive identification. Placed in gown. Bed in low bm8 position. Call light in reach. Side rails up X 1. Client placed on continuous cardiac and pulse oximetry monitoring. NIBP monitoring applied. Pulse ox on. NIBP on. Door closed. Visitors limited. Pillow given. Verbal reassurance given. Head of bed. 03:34 Provided Education on: post er care. bm8 03:34 No provider procedures requiring assistance completed. Patient did not have IV access bm8 during this emergency room visit. Patient maintains SpO2 saturation greater than 95% on room air. 03:40 Wes Davidson MD is Referral Physician. ec2 Administered Medications: 03:36 Drug: Lidocaine Mucous Membrane Gel 2 % 1 application Mucous Membrane once Route: bm8 Mucous Membrane; 04:10 Follow up: Response: No adverse reaction bm8 Medication: 03:34 VIS not applicable for this client. bm8 Outcome: 03:40 Discharge ordered by . ec2 04:09 Patient left the ED. bm8 04:09 Discharged to home ambulatory, bm8 04:09 Condition: stable 04:09 Discharge instructions given to patient, Instructed on discharge instructions, follow up and referral plans. medication usage, safety practices, Demonstrated understanding of instructions, follow-up care, medications, Prescriptions given X 2, Signatures: Douglas Diaz MD MD ec2 Afshan Baez 2 Tino Quijano, RN RN bm8
--- NOTE | 2024-08-17 03:40 | EDPHYS ---
Physician Documentation [facility] Name: Ar Henley Age: 29 yrs Sex: Male : 1995 Arrival Date: 08/17/2024 Time: 03:11 Bed 6 Private MD: ED Physician Douglas Diaz HPI: 08/17 03:33 This 29 yrs old Male presents to ER via Unassigned with complaints of Rectal ec2 Pain. 03:33 Patient arrives today d/t concern for rectal pain. reports that he feels a bulge at his ec2 rectum and is having pain w/ defecation. does regularly strain w/ bm. no bleeding. Historical: - Allergies: 03:33 Sulfa (Sulfonamide Antibiotics); bm8 - Home Meds: 03:33 None [Active]; bm8 - PMHx: 03:33 None; bm8 - PSHx: 03:33 None; bm8 - Immunization history:: Adult Immunizations up to date. - Infectious Disease History:: Denies. - Social history:: Smoking status: Patient denies any tobacco usage or history of. ROS: 03:33 Constitutional: as per hpi ec2 Exam: 03:33 Constitutional: GEN: NAD Head: atraumatic Eyes: EOMI Ears: External ears are ec2 normal. CV: regular rate LUNGS: no respiratory distress ABD: non-distended SKIN: no evidence of rashes MSK: no evidence of trauma. : Performed under nurse supervision, Tino RN, has superficial nonthrombosed external hemorrhoid that is tender to palpation with no bleeding Vital Signs: 03:31 BP 119 / 84; Pulse 60; Resp 16; Temp 98.1; Pulse Ox 98% ; Weight 111.13 kg; Height 5 bm8 ft. 10 in. ; Pain 7/10; 04:09 BP 125 / 83; Pulse 60; Resp 17; Temp 98.1; Pulse Ox 98% ; Pain 0/10; bm8 03:31 Body Mass Index 35.15 (111.13 kg, 177.8 cm) bm8 03:31 Pain Scale: Adult bm8 04:09 Pain Scale: Adult bm8 [place] Coma Score: 03:34 Eye Response: spontaneous(4). Motor Response: obeys commands(6). Verbal Response: bm8 oriented(5). Total: 15. 04:09 Eye Response: spontaneous(4). Motor Response: obeys commands(6). Verbal Response: bm8 oriented(5). Total: 15. MDM: 03:17 Medical Screening Exam initiated ec2 03:35 Data reviewed: vital signs, nurses notes. ec2 Administered Medications: 03:36 Drug: Lidocaine Mucous Membrane Gel 2 % 1 application Mucous Membrane once Route: bm8 Mucous Membrane; 04:10 Follow up: Response: No adverse reaction bm8 Disposition Summary: 08/17/24 03:40 Discharge Ordered Notes: Location: Home ec2 Condition: Stable ec2 Diagnosis - Other hemorrhoids ec2 Followup: ec2 - With: Wes Davidson MD - When: - Reason: Recheck today's complaints Discharge Instructions: - Discharge Summary Sheet ec2 - Hemorrhoids ec2 Forms: - Medication Reconciliation Form ec2 - Antibiotic Education ec2 - Prescription Opioid Use ec2 - Patient Portal Instructions ec2 - Leadership Thank You Letter ec2 Prescriptions: - lidocaine HCl 4 % (40 mg/mL) subgingival-local solution - apply 2.5 milliliter RECTAL route 4 times per day; 50 milliliter; Refills: 0, ec2 Product Selection Permitted - Anusol-HC 25 mg Rectal Suppository - insert 1 suppository RECTAL route every 12 hours As needed; 20 suppository; ec2 Refills: 0, Product Selection Permitted Signatures: Douglas Diaz MD MD ec2 Tino Quijano RN RN bm8
[2024-08-17 04:13] VITALS: BP 119/84; TEMP 98.1; O2SAT 98
== END 2024-08-17 04:09 | disposition home or self-care (01) ==
LOC: ER 03:11
DX: K64.8 Other hemorrhoids (principal)
CPT/HCPCS: 99284